=== PATIENT | female | born 2000 | race Caucasian/White ===

== ENCOUNTER 2024-12-28 00:02 | Emergency (ER) | payer BC, SELFPAY ==
--- OUTSIDE RECORDS SUMMARY | 2023-12-06 13:45 | XMS_ITS ---
Author Organization [facility] Address [address] [place] [address] Care Team Providers Care Estimator Lumber Name Role Phone Valerie Bhardwaj Primary Care Provider Unavailabl adele Lou Rao [facility] REASON FOR VISIT Minor Injuries Encounters Encounter Location Date Provider Diagnosis [address] [place] [address] 12/06/2023 Lou Hanna Plan Of Treatment No Information Progress Notes * JHONNYDANITAJordi LoomisCeciliaOB: 0 (24 yo F)Acc No.[id number]:12/06/2023 Patient: Vitor SEARS Provider: Arlin Hanna APRN :2000 A ge:23 Y S ex:Female Date:12/06/2023 External Visit ID:[id number] Address:[address] [place], [place] [address] [facility] Pcp:Valerie Bhardwaj Subjective: * Chief Complaints: * 1 . Minor Injuries. * Medical History: Objective: * Vitals: Assessment: Plan: * Treatment: * Billing Information: * Visit Code: * Procedure Codes: Care Plan Details* * Electronic signature of Viczayra Hanna APRN on 12/27/2024 at 11:22 PM CDT Sign off status: Pending * Provider: Arlin Hanna APRN Date: 12/06/2023 Generated for Beccai ng/Faxing/eTransmitting on: 0 12/27/2024 11:22 PM CDT
--- OUTSIDE RECORDS SUMMARY | 2024-11-01 07:15 | XMS_ITS ---
Author Organization [employer] [facility] [employer] Address [address] [place] [address] Care Team Providers Care Sew Out Operator Name Role Phone Javier Santoyo Primary Care Provider Ruddy Gallego Unavailable [phone] Valerie Bhardwaj Unavailable Unavailable Allergies Allergen (clinical drug ingredient) Drug/Non Drug Allergy documented on EMR Reaction Allergy Type Onset Date Status ketorolac Ketorolac Unknown Drug Allergy Active omeprazole Omeprazole vomiting Drug Allergy Activ e REASON FOR VISIT BH F/U Medications Medication SIG (Take, Route, Frequency, Duration) Notes Start Date End Date Status Prochlorperazine Maleate 10 MG 1 tablet as needed Orally Three times a day; Duration: 30 days Active CeleBREX 200 MG 1 capsule with food Orally Twice a day; Duration: 30 days Active Cymbalta 20 MG 1 capsule Orally Once a day Not-Taking SEROquel 25 MG 1 tablet at bedtime Orally Once a day; Duration: 30 days 03/16/2024 Not-Taking Hyoscyamine Sulfate 0.125 MG 3 tablets Orally twice a day; Duration: 30 days 08/16/2024 12/12/2024 Active Gabapentin 300 MG 1 capsule Orally three times a day; Duration: 30 days 03/16/2024 Active Vitamin D 25 MCG (1000 UT) 1 tablet Oral ly Once a day Not-Taking carBAMazepine 200 MG 1 tablet Orally Twice a day; Duration: 90 days 04/10/2024 Not-Taking Vitamin C 100 MG 1 tablet Orally Once a day Not-Taking Vitamin B12 100 MCG as directed Orally Not-Taking traZODone HCl 100 MG 1 tablet at bedtime as needed Orally Once a day; Duration: 30 days 03/30/2024 Active ALPRAZolam 0.5 MG 1 tablet Orally three times a day (tid) as needed (prn); Duration: 30 days As needed 08/18/2024 Active Caplyta 42 MG 1 capsule Orally Once a day; Duration: 30 days 03/16/2024 Active Sprintec 28 0.25-35 MG-MCG 1 tablet Oral ly Once a day; Duration: 28 days Active oxyBUTYnin Chloride ER 10 MG 1 tablet Orally Once a day; Duration: 90 days 08/09/2024 11/07/2024 Active Cranberry Active Multivitamin Active Zofran ODT 4 MG 1 tablet on the tongue and allow to dissolve Orally every 8 hours; Duration: 30 days As needed Active Social History Tobacco Use: Social History Observation Description Date Details (start date - stop date) Never Smoker NA - NA Tobacco Screen: Question Answer Notes Are you a: never smoker Alcohol Screening: Question Answer Notes Did you have a drink containing alcohol in the p ast year? No Points 0 Interpretation Negative Encounters Encounter Location Date Provider Diagnosis [facility] [address] [place] [address] 2024 Ruddy Gallego Plan Of Treatment Next Appt Details Provider Name:Ruddy Gallego, 01/02/2025 09:45:00 AM, [address] [place], [address], Progress Notes * CHALO KRUSE MDOB: [birth year] (24 yo F)Acc No.[id number]:11/01/2024 Behavioral Health Patient: CHALO SEARS Provider: GINA Beck :2000 A ge:24 Y S ex:Female Date:11/01/2024 Address:[address] [place] [address] [id number] Pcp:Javier Santoyo Subjective: * Chief Complaints: * 1 . BH F/U. * Medical History: L UPUS, IBS, ENDOMITRIOSIS, CHRONIC KIDNEY STONES, BIPOLAR 1, DEPRESSION WITH PSYCHOSIS, PTSD. * Surgical History: L APAROSCOPY , LITHOTRIPSY , MULTIPLE KIDNEY STENTS . * Hospitalization/Major Diagno stic Procedure: S EE ABOVE , tubular ovarian abscess and cyst . * Family History: F ather: alive, diagnosed with Diabetes. M other: alive, diagnosed with Lupus. 1 brother(s) . . * Social History: G eneral: T obacco Screen A re you a: n ever smoker Alcohol Screening D id you have a drink containing alcohol in the past year? N o P oints 0 I nterpretation N egative Transition of Care E R/UC/hospital since last office visit? N o Behaviors affecting health P oor/Risky Behaviors: D enies- Social/Support Concerns P atient: N o Ability to understand healthcare/treatment P atient: G ood Communication Barrier L anguage Barrier?: N o * Medications: T aking Cranberry , Taking Multivitamin , Taking Zofran ODT 4 MG Tablet Disintegrating 1 tablet on the tongue and allow to dissolve Orally every 8 hours As needed, Taking Sprintec 28 0.25-35 MG-MCG Tablet 1 tablet Orally Once a day , Taking oxyBUTYnin Chloride ER 10 MG Tablet Extended Release 24 Hour 1 tablet Orally Once a day , stop date 11/07/2024, Taking ALPRAZolam 0.5 MG Tablet 1 tablet Orally three times a day (tid) as needed (prn) As needed, Taking Caplyta 42 MG Capsule 1 capsule Orally Once a day , Taking traZODone HCl 100 MG Tablet 1 tablet at bedtime as needed Orally Once a day , Taking Gabapentin 300 MG Capsule 1 capsule Orally three times a day , Taking Hyoscyamine Sulfate 0.125 MG Tablet 3 tablets Orally twice a day , stop date 12/12/2024, Taking Prochlorperazine Maleate 10 MG Tablet 1 tablet as needed Orally Three times a day , Taking CeleBREX 200 MG Capsule 1 capsule with food Orally Twice a day , Not-Taking/PRN Vitamin C 100 MG Tablet Chewable 1 tablet Orally Once a day , Not-Taking/PRN Vitamin B12 100 MCG Tablet as directed Orally , Not-Taking/PRN Vitamin D 25 MCG (1000 UT) Tablet 1 tablet Orally Once a day , Not-Taking/PRN carBAMazepine 200 MG Tablet 1 tablet Orally Twice a day , Not-Taking/PRN Cymbalta 20 MG Capsule Delayed Release Particles 1 capsule Orally Once a day , Not-Taking/PRN SEROquel 25 MG Tablet 1 tablet at bedtime Orally Once a day * Allergies: O meprazole: vomiting, Ketorolac. Objective: * Vitals: Assessment: Plan: * Treatment: * Images: * Electronic signature of GINA Corbin on 12/28/2024 at 12:22 AM EDT Sign off status: Pending * Provider: GINA Beck Date: 11/01/2024 Generated for Sharonda riley/Verna/Debbie on: 12/28/2024 12:22 AM EDT
--- OUTSIDE RECORDS SUMMARY | 2024-11-06 07:15 | XMS_ITS ---
Author Organization [facility] es Address [address] [place] [address] Care Team Providers Care Trouble Clerk Name Role Phone Javier Santoyo Primary Care Provider Ruddy Gallego Unavailable [phone] Valerie Bhardwaj Unavailable Unavailable REASON FOR VISIT POST SURGERY RECHECK Encounters Encounter Location Date Provider Diagnosis [facility] [address] [place] [address] 11/06/2024 Javier Santoyo Plan Of Treatment Next Appt Details Provider Name:Ruddy Gallego, 01/02/2025 09:45:00 AM, [address] [place] [address], [address], Progress Notes * CHALO KRUSE MDOB: [birth year] (24 yo F)Acc No.[id number]:11/06/2024 Progress Notes Patient: Marco TIEN CHALO Chase Provider: Charly Santoyo :2000 A ge:24 Y S ex:Female Date:11/06/2024 Address:[facility] [id number] Subjective: * Chief Complaints: * 1 . POST SURGERY RECHECK. * Medical History: Objective: * Vitals: Assessment: Plan: * Treatment: * Images: * Electronic signature of Roddy Santoyo DO on 12/28/2024 at 12:22 AM EDT Sign off status: Pending * Provider: Charly Santoyo Date: 0 11/06/2024 Generated for Sharonda riley/Verna/Debbie on: 0 12/28/2024 12:22 AM EDT
[2024-12-28 00:13] VITALS: BP 107/44; PULSE 121; TEMP 36.4; O2SAT 98; BMI 40.4
[2024-12-28 00:20] VITALS: O2SAT 98
--- OUTSIDE RECORDS SUMMARY | 2024-12-28 00:23 | XMS_ITS | Clinical Summary ---
Author Organization [facility] Address [address] [place] [address] Phone Care Team Providers Care Social Work Professor Name Role Phone Valerie Bhardwaj MD Primary Care Provider [phone] Social History Tobacco Use Types Packs/Day Years Used Date Smoking Tobacco: Never Assessed Comments Unknown Sex and Gender Information Value Date Recorded Sex Assigned at Not on file Legal Sex Female 10:59 PM EST Gender Identity Not on file Sexual Orientation Not on file Plan of Treatment Not on file Medical Devices Implanted Type Area Staffing Executive Device Identifier Shelf Expiration Date Model / Serial / Lot Guidewire, Ultra Track, Hybrid, 0.035 In X 150cm Case [id number] Implanted:Qty: 2 on 05/06/2021 by Link Shell MD [employer] JOSE ALFREDO [employer] [id number] / / Description:Converted from [facility]. Please see archived information for full log information. Stent, Inlay Magee, 6fr X 24cm Case [id number] Implanted:Qty: 1 on 05/06/2021 by Link Shell MD Stent [employer] 11/10/2023 [id number] / / [id number] Description:Converted from [facility]. Please see archived information for full log information. Care Teams Social Work Professor Relationship Specialty Start Date End Date Valerie Bhardwaj MD [address] [place] [address] [address] [place] [address] PCP - General 04/21/21
--- OUTSIDE RECORDS SUMMARY | 2024-12-28 00:23 | XMS_ITS | Patient Health Record ---
Author Organization [facility] Address [address] [place] [address] Care Team Providers Care Atm Manager Name Role Phone Valerie Bhardwaj Primary Care Provider Unavailabl e Allergies Allergen (clinical drug ingredient) Drug/Non Drug Allergy documented on EMR Reaction Allergy Type Onset Date Status ketorolac Ketorolac vomit blood Drug Allergy Activ e omeprazole Omeprazole vomit blood Drug Allergy Act benita Reason For Referral No Information Medications Medication SIG (Take, Route, Frequency, Duration) Notes Start Date End Date Status Pepcid 20 MG 1 tablet Orally twic e a day Active oxyBUTYnin Chloride ER 10 MG 1 tablet Or ally Once a day Active Ondansetron 4 MG 1 tablet on the tongue and allow to dissolve Orally Every 8 hours As needed Active Norethindrone 0.35 MG 1 tablet Orally On ce a day Active Hyoscyamine Sulfate 0.125 MG 1 tablet as needed Orally every 4 hrs Active Cymbalta 20 MG 1 capsule Orally Onc e a day Active Cholecalciferol 25 MCG (1000 UT) 2 caps Orally Once a day Active CeleBREX 200 MG 1 capsule with food Orally twice a day Active Immunizations Vaccine Route Administration Date Status Comme nts [id number] Quad MDV (0.5mL Admin) 3 y/o & older Unknown 06/24/2020 Contraindications z2022 Fluzone Quad PFS (0.5m L Admin) 6 months & older Unknown 05/10/2022 Contraindications z2023 FluBLOK, 18 y/o & Olde r, Quad PDF (0.5mL Admin) Unknown 03/27/2023 Refused Social History Tobacco Use: Social History Observation Description Date Details (start date - stop date) Never Smoker NA - NA Tobacco Use Question Answer Notes Are you a Never smoker Problems Problem Type SNOMED Code ICD Code Onset Dates Problem Status W/U Status Risk Notes Problem Gastroesophageal reflux disease (964575963) GERD (gastroesophage al reflux disease) (K21.9) Active confirmed Problem Body mass index 40+ - morbidly obese (905689363) BMI 40.0-44.9, adult (Z68.41) Active confirmed Problem Elevated blood pressure reading without diagnosis of hypertension (197443087) Elevated blood pressure reading in office without diagnosis of hypertension (R03.0) Active confirmed Plan Of Treatment No Information Insurance Providers Payer Name Payer Address Payer Phone Subscriber Number Group Number Insured Name Patient Relationship to Insured Coverage Start Date Coverage End Date [facility] [address] [place] [address] [id number] Vitor Cabrera Self - patient is the insured Medical (General) History Medical History History ICD Code Lupus M32.9 IBS (irritable bowel syndrome) K58.9 Kidney stone N20.0 GERD (gastroesophageal reflux disease) K 21.9 Surgical History Surgery Date(Month/Year) ABD exploratory lap lithotripsy left kidney stent x2 tonsillectomy Hospitalization History Reason Date(Month/Year) kidney/lupus 04/2021
--- OUTSIDE RECORDS SUMMARY | 2024-12-28 00:23 | XMS_ITS | Clinical Summary ---
Author Organization [facility] Address [address] [facility] [place] [address] Care Team Providers Care Flour Blender Name Role Phone Javier Santoyo MD Primary Care Provider [phone] Allergies Active Allergy Reactions Criticality Noted Date Comments Bacitracin-Polymyxin B 08/09/2024 Other Reaction(s): Rash, Unknown Ketorolac GI bleeding 06/06/2021 Other Reaction(s): vomit blood, Vomiting Latex 08/04/2024 Other Reaction(s): Skin irritation Milk (Cow) GI intolerance 01/08/2021 Neomycin-Bacitracin Zn-Polymyx Rash Low 01/15/2021 Omeprazole Anaphylaxis,Shortnes s of breath,Unknown High 09/02/2020 Other Reaction(s): vomit blood, vomiting Other reaction(s): Difficulty Breathing Other GI intolerance 01/08/2021 Other Reaction(s): GI Upset Peanut (Diagnostic) GI intolerance 01/08/2021 Prunus 01/08/2021 Other Reaction(s): GI Upset Soybean Oil GI intolerance 01/08/2021 Medications hyoscyamine (Anaspaz,Levsin) 0.125 MG tablet TAKE 1 TABLET BY MOUTH 5 TIMES A DAY NEEDED Active Jencycla 0.35 MG tablet Take 1 tablet by mouth Daily Active ondansetron ODT (Zofran-ODT) 4 MG disintegrating tablet DISSOLVE 1 TABLET IN MOUTH 3 TIMES A DAY NEEDED FOR 5 DAYS Active oxybutynin XL (Ditropan-XL) 10 MG 24 hr tablet Take 10 mg by mouth Daily Active traZODone (Desyrel) 100 MG tablet 1 (one) time each day at the same time 4 Active CeleBREX 200 MG capsule every 12 (twelve) hours Active gabapentin (Neurontin) 300 MG capsule Take 300 mg by mouth in the morning and 300 mg in the evening and 300 mg before bedtime. 5 Active famotidine (Pepcid) 20 MG tablet every 12 (twelve) hours Active HYDROcodone-acetam inophen (Rentz) 5-325 MG tablet Take 1 tablet by mouth every 6 (six) hours if needed 5 Active prochlorperazine (Compazine) 10 MG tablet every 8 (eight) hours Active Caplyta 42 MG capsule 1 capsule 1 (one) time each day at the same time 4 Active ALPRAZolam (Xanax) 0.5 MG tablet 1 tablet Orally three times a day (tid) as needed (prn) for 30 days As needed 5 Active dicyclomine (Bentyl) 20 MG tablet TAKE 1 TABLET BY MOUTH 3 TIMES A DAY NEEDED FOR ABDOMINAL PAIN 5 Active Multiple Vitamin (multivitamin) tablet Take 1 tablet by mouth Daily Active acetaminophen (Tylenol) 500 MG tablet Take 1,000 mg by mouth if needed for mild pain Active norethindrone-ethi nyl estradiol (Loestrin Fe 07/10) 1-20 MG-MCG tabletIndications: Pelvic pain in female,Irregular menses,Dysmenorrhe a Take 1 tablet by mouth Daily 90 tablet 3 5 08/22/19 26 Active Active Problems Problem Noted Date Diagnosed Date Lower abdominal pain 08/09/2024 Chronic abdominal pain 08/09/2024 Encounters Date Type Department Care Team Description 11/22/2024 Telephone [facility] [address] [place] [address] Meredith Corona LPN 10/30/2024 Travel 10/17/2024 Travel from Last 3 Months Family History Medical History Relation Name Comments Asthma Brother Robin Cancer Father Jeff Diabetes Father Jeff Relation Name Status Comments Brother Robin Alive Father Jeff Alive Mother Alive Social History Tobacco Use Types Packs/Day Years Used Date Smoking Tobacco: Never Smokeless Tobacco: Never Tobacco Cessation:Counseling Given: Not Answered Alcohol Use Standard Drinks/Week Comments Not Currently 0 (1 standard drink = 0.6 oz pur e alcohol) Comments No Sex and Gender Information Value Date Recorded Sex Assigned at Not on file Legal Sex Female 9:45 PM EDT Gender Identity Not on file Sexual Orientation Not on file Last Filed Vital Signs Vital Sign Reading Time Taken Comments Blood Pressure 112/82 08/21/2024 11:29 AM EST Pulse 68 08/04/2024 5:29 PM EST Temperature 36.7 C (98 F) 08/04/2024 5:29 PM EST Respiratory Rate - - Oxygen Saturation 98% 08/04/2024 5:29 PM EST Inhaled Oxygen Concentration - - Weight 128 kg (283 lb) 09/12/2024 1:53 PM EDT Height 167.6 cm (5' 6 ) 09/12/2024 1:53 PM EDT Body Mass Index 45.68 09/12/2024 1:53 PM EDT Plan of Treatment Health Maintenance Due Date Last Done Comments Influenza Vaccine (#1) 2025 Procedures Procedure Name Priority Date/Time Associated Diagnosis Comments CT ABDOMEN PELVIS W IV CONTRAST Routine 10/25/2024 4:40 PM EDT Lower abdominal pain Chronic abdominal pain Localized enlarged lymph nodes from Last 3 Months Results * CT abdomen pelvis w IV contrast (10/25/2024 4:40 PM EDT) Anatomical Region Laterality Modality Body, Pelvis, Abdomen Computed T omography 10/25/2024 4:40 PM EDT Impressions 10/25/2024 4:45 PM EDT No acute process. Bilateral nephrolithiasis. Prominent mesenteric lymph nodes similar to the prior study. Finding is nonspecific. Attention on follow-up is suggested. Impression dictated by: Dejuan Wiley Jr., D.O. 10/25/2024 4:42 PM Dictation Location: [address] [place] [address] Transcribed By: PWS 10/25/24 1642 Dictated By: Dejuan Wiley Jr, DO 10/25/24 1640 Signed By: <Electronically signed by Dejuan Wiley Jr, DO in OV> 10/25/24 1642 Narrative 10/25/2024 4:45 PM EDT [facility] [id number] Scan Report Signed Patient: Vitor Goode MR#: [id number] : 2000 Acct:[id number] Age/Sex: 24 / F ADM Date: 10/25/24 Loc: CT Room: Type: [facility] CLI Attending Dr: Radu Loomis MD Copies to: Radu Loomis MD Ordering Provider: Radu Loomis MD Date of Service: 10/25/24 CT/CT abdomen pelvis w con: Abdominal pain, Enlarged lymph nodes CT ABDOMEN AND PELVIS WITH INTRAVENOUS CONTRAST: CLINICAL HISTORY: Lower abdominal/pelvic pain for 5 years. COMPARISON: CT abdomen and pelvis 06/26/2024 TECHNIQUE: Spiral images were obtained through the abdomen and pelvis following the administration of intravenous contrast. This CT exam was performed using one or more following dose reduction techniques: Automated exposure control, adjustment of the mA and/or kV according to patient size, or use of iterative reconstruction technique. FINDINGS: Lung Bases: [No acute findings.] Organs:Gallbladder is contracted. Liver portal vein spleen pancreas and adrenal glands all appear unremarkable. Cyst left kidney. Bilateral nephrolithiasis largest stone measuring 5 mm involving the right kidney. Aorta appears normal in caliber.[ GI: Stomach is grossly unremarkable. Small bowel appears nondilated. Appendix is normal. Acute colonic abnormality.[ Pelvis:[Urinary bladder is grossly unremarkable. Uterus is grossly unremarkable. No adnexal mass.] Peritoneum/Retroperitoneum:No free air or free fluid or lymphadenopathy. Prominent mesenteric lymph nodes.[ Abd wall/Bones:Abdominal wall demonstrate no acute findings. Osseous structures demonstrate mild degenerative change.[ CT/CT abdomen pelvis w con Procedure Note Dejuan Wiley Jr., DO - 10/25/2024 [facility] Main [place] [address] [place] [address] CT Scan Report Signed Patient: Vitor Goode MMR#: [id number] : 2000Acct:[id number] Age/Sex: 24 / FADM Date: 10/25/24 Loc: CT Room:Type: [facility] CLI Attending Dr: Radu Loomis MD Copies to: Radu Loomis MD Ordering Provider: Radu Loomis MD Date of Service: 10/25/24 CT/CT abdomen pelvis w con: Abdominal pain,Enlarged lymph nodes CT ABDOMEN AND PELVIS WITH INTRAVENOUS CONTRAST: CLINICAL HISTORY: Lower abdominal/pelvic pain for 5 years. COMPARISON: CT abdomen and pelvis 06/26/2024 TECHNIQUE: Spiral images were obtained through the abdomen and pelvisfollowing the administration of intravenous contrast. This CT exam was performed using one or morefollowing dose reduction techniques: Automated exposure control, adjustment of the mA and/or kVaccording to patient size, or use of iterative reconstruction technique. FINDINGS: Lung Bases: [No acute findings.] Organs:Gallbladder is contracted. Liver portal vein spleen pancreas andadrenal glands all appear unremarkable. Cyst left kidney. Bilateral nephrolithiasis largest stonemeasuring 5 mm involving the right kidney. Aorta appears normal in caliber.[ GI: Stomach is grossly unremarkable. Small bowel appears nondilated.Appendix is normal. Acute colonic abnormality.[ Pelvis:[Urinary bladder is grossly unremarkable. Uterus is grosslyunremarkable. No adnexal mass.] Peritoneum/Retroperitoneum:No free air or free fluid or lymphadenopathy.Prominent mesenteric lymph nodes.[ Abd wall/Bones:Abdominal wall demonstrate no acute findings. Osseousstructures demonstrate mild degenerative change.[ CT/CT abdomen pelvis w con IMPRESSION: No acute process. Bilateral nephrolithiasis. Prominent mesenteric lymph nodes similar to the prior study. Finding isnonspecific. Attention on follow-up is suggested. Impression dictated by: Dejuan Wiley Jr., D.O. 10/25/2024 4:42 PM Dictation Location: [place] [address] Transcribed By: [facility] 10/25/24 1642 Dictated By: Dejuan Wiley Jr, DO 10/25/24 1640 Signed By: <Electronically signed by Dejuan Wiley Jr, DO inOV> 10/25/24 1642 Radu Oliveros MD IMG CT PROCEDURES Final Resu lt from Last 3 Months Insurance BCBS Care Teams Flour Blender Relationship Specialty Start Date End Date Javier Santoyo MD [facility] [place] [address] PCP - General Family Medicine 08/09/24
--- OUTSIDE RECORDS SUMMARY | 2024-12-28 00:23 | XMS_ITS | Clinical Summary ---
Author Organization [facility] Address [address] [place] [address] Care Team Providers Care Gum Rolling Machine Operator Name Role Phone Valerie Bhardwaj MD Primary Care Provider [phone] Allergies Active Allergy Reactions Criticality Noted Date Comments Apricot GI Upset 01/08/2021 Beef Containing Products GI Upset 01/08/2021 Ketorolac Vomiting 06/06/2021 Milk GI Upset 01/08/2021 Qturjlxn-Oziawuqzca-P olymyxin Rash 01/15/2021 Omeprazole Anaphylaxis,Shortnes s of Breath High 09/02/2020 Other reaction(s): Difficulty Breathing Peanut GI Upset 01/08/2021 Pork Derived (Porcine) GI Upset 01/08/2021 Soy Protein GI Upset 01/08/2021 Mcintosh GI Upset 01/08/2021 Medications Norethindrone, Contraceptive, 0.35 mg tablet Norethindrone (Contraceptive) Active 0.35 MG PO Daily October 24, 2020 12:02pm 10/25/19 21 Active iv contrast (will be provided with radiology test) CT ABD/PEL -Inject, intravenously, once for 1 dose.No IV access, insert saline lock prior to the beginning of sedation, infusion, injection of imaging exam. Discontinue saline lock post exam. If Pt. has a central line or IVAD, may access for administration according to line specific nursing protocol. Once exam is complete flush line and de-access according to line specific nursing protocol in the CT contrast administration guidelines link. 1 Each 01/16/20 21 Active tamsulosin (FLOMAX) 0.4 mgIndications:K idney stones,Abdomina l pain, unspecified abdominal location,Left ureteral stone,Hydroneph rosis with urinary obstruction due to ureteral calculus,Microh ematuria Take 1 capsule by mouth once daily. Take one cap. daily 30 capsule 02/11/20 Active prochlorperazin e (COMPAZINE) 5 mg tablet Take 10 mg by mouth every 8 hours as needed. Active ondansetron (ZOFRAN) 4 mg tablet Take by mouth every 8 hours as needed for nausea/vomiting. Active oxyCODONE-aceta minophen (PERCOCET) 5-325 mg tablet Take by mouth every 8 hours as needed for pain. Active DULoxetine (CYMBALTA) 30 mg capsule Take 30 mg by mouth twice daily. Active melatonin 10 mg tab Take by mouth. Activ e famotidine (PEPCID) 40 mg tablet Take 40 mg by mouth once daily. Active Hyoscyamine Sulfate 0.125 mg-0.25 mg (0.375 mg) TbMP Take by mouth. Active ergocalciferol 50,000 unit capsule (VITAMIN D2, DRISDOL) Take 1 capsule by mouth one time a week. 12 capsule 06/11/20 Active Active Problems Problem Noted Date Diagnosed Date Kidney stones 02/10/2021 Abdominal pain 02/10/2021 Left ureteral stone 02/10/2021 Hydronephrosis with urinary obstruction due to ureteral calculus 02/10/2021 Microhematuria 02/10/2021 Family History Medical History Relation Comments Blood Clots Father Diabetes Father Kidney stones Father Lymphoma Father Fibromyalgia Mother Systemic Lupus Erythematosus Mother endometriosis Mother Colon Cancer Paternal Uncle Crohn's Disease Paternal Uncle Kidney stones Paternal Uncle Relation Status Comments Father Mother Paternal Uncle Other Social History Tobacco Use Types Packs/Day Years Used Date Smoking Tobacco: Never Smokeless Tobacco: Never Tobacco Cessation:Counseling Given: Yes Alcohol Use Standard Drinks/Week Comments Never 0 (1 standard drink = 0.6 oz pur e alcohol) Area Deprivation Index Answer Date Fox rded National Score (1-100), lower number is lower ri sk 51 07/07/2022 State Score (1-10), lower number is lower risk N ot on file 07/07/2022 Data from: https://www.neighborhoodatlas.medicine.[facility].edu/. Last address used for calculation [address] [facility] 07/07/2022 Comments Unknown Sex and Gender Information Value Date Recorded Sex Assigned at Not on file Legal Sex Female 3:46 PM EDT Gender Identity Not on file Sexual Orientation Not on file Last Filed Vital Signs Vital Sign Reading Time Taken Comments Blood Pressure 106/70 06/06/2021 4:34 PM EST Pulse 95 06/06/2021 4:34 PM EST Temperature 36.5 C (97.7 F) 06/06/2021 4:34 PM EST Respiratory Rate 16 06/06/2021 4:34 PM EST Oxygen Saturation 99% 06/06/2021 4:34 PM EST Inhaled Oxygen Concentration - - Weight 93.4 kg (206 lb) 06/06/2021 4:34 PM EST Height 167.6 cm (5' 6 ) 06/06/2021 4:34 PM EST Body Mass Index 33.25 06/06/2021 4:34 PM EST Plan of Treatment Health Maintenance Due Date Last Done Comments DTaP,Tdap,Td Vaccine (6 - Tdap) 2011 02/12/2005, 06/09/2001, 2000, Additional history exists Peds To Adult Transition Ini tial Discussion 2012 Peds To Adult Transition [place] ual Assessment 2014 HPV Vaccine (1 - 3-dose series) 2015 Anxiety Screening 2018 Depression Screening 2018 HIV Screening 2018 Hepatitis C Screening 2018 Cervical Cancer Screening 2021 Covid-19 Vaccine (3 - 2023-2 5 season) 2024 12/14/2020, 11/23/2020 Influenza Vaccine (#1) 2025 Hepatitis B Vaccine Completed 2000, 2000, 2000 Insurance BLUE CARD PPO [employer] Care Teams Gum Rolling Machine Operator Relationship Specialty Start Date End Date Valerie Bhardwaj MD [address] [place] [address] PCP - General Family Medicine 02/10/21
--- OUTSIDE RECORDS SUMMARY | 2024-12-28 00:23 | XMS_ITS | Encounter Summary ---
Author Organization [facility] Address [address] [place] [id number] Care Team Providers Care Dishcloth Folder Name Role Phone Valerie Bhardwaj MD Primary Care Provider [phone] Source Comments In the event this information is protected by the Federal Confidentiality of Alcohol and Drug AbusePatient Records regulations: The Federal rules restrict any use of the information to criminally investigate or prosecute any alcohol or drug abuse patient.[facility] Encounter Details Date Type Department Care Team (Late st Contact Info) Description 03/04/2021 Get Medical Advice Urology [address] [place] [address] Joel Cruz MD [address] [place], [place] [id number] RE: Medication Question (Not Renewal) Social History Tobacco Use Types Packs/Day Years Used Date Smoking Tobacco: Never Smokeless Tobacco: Never Area Deprivation Index Answer Date Fox rded National Score (1-100), lower number is lower ri sk Not on file 01/15/2021 State Score (1-10), lower number is lower risk N ot on file 01/15/2021 Data from: https://www.neighborhoodatlas.medicine.[facility].edu/. Last address used for calculation Not on file 01/15/2021 Comments Unknown Sex and Gender Information Value Date Recorded Sex Assigned at Not on file Legal Sex Female 3:46 PM EDT Gender Identity Not on file Sexual Orientation Not on file COVID-19 Exposure Response Date Recorded In the last month, have you been in contact with someone who was confirmed or suspected to have Coronavirus / COVID-19? No / Unsure 02/10/2021 2:42 PM EDT documented as of this encounter Plan of Treatment Not on file documented as of this encounter Visit Diagnoses Not on filedocumented in this encounter Care Teams Dishcloth Folder Relationship Specialty Start Date End Date Valerie Bhardwaj MD [address] [place] [id number] PCP - General Family Medicine 02/10/21 documented as of this encounter
--- OUTSIDE RECORDS SUMMARY | 2024-12-28 00:23 | XMS_ITS | Encounter Summary ---
Author Organization [facility] Address [facility] [place] [address] Care Team Providers Care Rolling Mill Plugger Name Role Phone Valerie Bhardwaj MD Primary Care Provider [phone] Source Comments In the event this information is protected by the Federal Confidentiality of Alcohol and Drug AbusePatient Records regulations: The Federal rules restrict any use of the information to criminally investigate or prosecute any alcohol or drug abuse patient.[facility] Encounter Details Date Type Department Care Team (Late st Contact Info) Description 09/18/2021 Patient Msjane [facility] & [address] [place] [id number] Provider, [facility] RESCHEDULED APPOINTMENT Social History Tobacco Use Types Packs/Day Years Used Date Smoking Tobacco: Never Smokeless Tobacco: Never Alcohol Use Standard Drinks/Week Comments Never 0 (1 standard drink = 0.6 oz pur e alcohol) Area Deprivation Index Answer Date Fox rded National Score (1-100), lower number is lower ri sk Not on file 01/15/2021 State Score (1-10), lower number is lower risk N ot on file 01/15/2021 Data from: https://www.neighborhoodatlas.medicine.[facility].edu/. Last address used for calculation Not on file 01/15/2021 Comments Unknown Sex and Gender Information Value Date Recorded Sex Assigned at Not on file Legal Sex Female 3:46 PM EDT Gender Identity Not on file Sexual Orientation Not on file documented as of this encounter Plan of Treatment Not on file documented as of this encounter Visit Diagnoses Not on filedocumented in this encounter Care Teams Rolling Mill Plugger Relationship Specialty Start Date End Date Valerie Bhardwaj MD [address] [place] [address] PCP - General Family Medicine 02/10/21 documented as of this encounter
--- NOTE | 2024-12-28 00:56 | ED.ABDPAIN1 ---
HPI - Abdominal Pain General Chief Complaint: Abdominal Pain Stated Complaint: ABDOMINAL PAIN Time Seen by Provider: 12/28/24 00:53 Source: patient Mode of arrival: walk-in Limitations: no limitations History of Present Illness HPI narrative: seen at [facility] a couple of days ago and diagnosed with left renal colic. Continued pain ever since but has increased tonight. No fever. Does have hematuria Related Data Home Medications ?Medication ?Instructions ?Recorded ?Confirmed alprazolam 0.5 mg tablet mg 12/28/24 cephalexin 500 mg capsule mg 12/28/24 hydrocodone 5 mg-acetaminophen 325 tab 12/28/24 mg tablet hyoscyamine sulfate 0.125 mg tablet mg 12/28/24 lumateperone 42 mg capsule mg PO 12/28/24 (Caplyta) norgestimate 0.25 mg-ethinyl tab 12/28/24 estradiol 0.035 mg tablet ondansetron 4 mg disintegrating mg 12/28/24 tablet ondansetron HCl 4 mg tablet mg 12/28/24 oxybutynin chloride 10 mg mg PO 12/28/24 tablet,extended release 24 hr prochlorperazine maleate 10 mg mg 12/28/24 tablet sulfamethoxazole 800 tab 12/28/24 mg-trimethoprim 160 mg tablet Allergies Allergy/AdvReac Type Severity Reaction Status Date / Time ketorolac (From Toradol) Allergy Intermediate Vomiting Verified 12/28/24 00:18 omeprazole AdvReac Intermediate Abdominal Verified 12/28/24 00:18 Pain Review of Systems ROS Status of ROS 10 or more systems reviewed and unremarkable except as noted in history and below Exam Constitutional Vital Signs, click to edit/add: Last Vital Signs Temp 97.6 F 12/28/24 00:13 Pulse 121 H 12/28/24 00:13 Resp 20 12/28/24 00:13 BP 107/44 L 12/28/24 00:13 Pulse Ox 98 12/28/24 00:20 O2 Del Method Room Air 12/28/24 00:20 Common normals: no apparent distress, oriented x3, alert and well nourished [facility] Common normals: normocephalic and head/scalp atraumatic Eye Common normals: EOMs intact bilaterally and conjunctivae normal Respiratory Common normals: normal respiratory effort, no retractions, no use of accessory muscles and clear to auscultation bilaterally Cardio Rate: tachycardic GI Other: LLQ and left CVA pain Neuro Common normals: oriented x3, CN's II-XII intact bilaterally, moves all extremities and no focal motor deficits Psych Appearance: grossly normal Course Vital Signs Vital signs: Vital Signs Temperature 97.6 F 12/28/24 00:13 Pulse Rate 121 H 12/28/24 00:13 Respiratory Rate 20 12/28/24 00:13 Blood Pressure 107/44 L 12/28/24 00:13 Pulse Oximetry 98 12/28/24 00:13 Oxygen Delivery Method Room Air 12/28/24 00:13 Temperature 97.6 F 12/28/24 00:13 Pulse Rate 121 H 12/28/24 00:13 Respiratory Rate 20 12/28/24 00:13 Blood Pressure 107/44 L 12/28/24 00:13 Pulse Oximetry 98 12/28/24 00:20 Oxygen Delivery Method Room Air 12/28/24 00:20 MDM - Abdominal Pain MDM Narrative Medical decision making narrative: patient presents with left renal colic. Seen At [facility] [address] reviewed and demonstrated 4mm stone at UVJ. Patient medicated in the department and is feeling better. Still has Antoine at home. Labs with microscopic hematuria and normal WBC. Patient hydrated with 1L NS and discharged home Lab Data Labs: Lab Results 12/28/24 12/28/24 12/28/24 Range/Units 00:45 00:55 01:52 WBC 9.8 (4.0-11.0) 10^3/uL RBC 4.93 (4.20-5.40) 10^6/uL Hgb 14.7 (12.0-16.0) g/dL Hct 43.1 (36.0-48.0) % MCV 87.4 (81.0-99.0) fL MCH 29.8 (26.7-34.0) pg MCHC 34.1 (29.9-35.2) g/dL RDW 12.5 (11.0-15.0) % Plt Count 347 (150-450) 10^3/uL MPV 9.7 (9.5-13.5) fL Neut % (Auto) 62.9 (43.0-75.0) % Lymph % (Auto) 28.7 (20.5-60.0) % Falls % (Auto) 5.4 (1.7-12.0) % Eos % (Auto) 2.5 (0.9-7.0) % Baso % (Auto) 0.3 (0.2-2.0) % Neut # (Auto) 6.2 (1.4-6.5) 10^3/uL Lymph # (Auto) 2.8 (1.2-3.8) 10^3/uL Falls # (Auto) 0.5 (0.3-0.8) 10^3/uL Eos # (Auto) 0.2 (0.0-0.7) 10^3/uL Baso # (Auto) 0.0 (0.0-0.1) 10^3/uL Abs Immat Gran (auto) 0.02 (0.00-0.03) 10^3/uL Imm/Tot Granulo (auto) 0.2 (0.0-0.5) % Sodium 139 (136-145) mmol/L Potassium 3.6 (3.5-5.1) mmol/L Chloride 102 (98-107) mmol/L Carbon Dioxide 25.3 (21.0-32.0) mmol/L Anion Gap 15.3 BUN 12.0 (7.0-18.0) mg/dL Creatinine 0.76 (0.55-1.02) mg/dL Est GFR ( Amer) >60 (>=60 mL/min/1.73m^2) Est GFR (Non-Af Amer) >60 (>=60 mL/min/1.73m^2) BUN/Creatinine Ratio 15.8 Glucose 91 (74-106) mg/dL Lactate 0.7 (0.4-2.0) mmol/L Calcium 9.4 (8.5-10.1) mg/dL Urine Color Lt. yellow (YELLOW) Urine Clarity Clear (CLEAR) Urine pH 6.0 (5.0-9.0) Ur Specific [place] <=1.005 A (1.005-1.025) Urine Protein Negative (NEG/TRACE) mg/dL Urine Glucose (UA) Negative (NEGATIVE) mg/dL Urine Ketones Negative (NEGATIVE) mg/dL Urine Occult Blood Moderate A (NEGATIVE) Urine Nitrite Negative (NEGATIVE) Urine Bilirubin Negative (NEGATIVE) Urine Urobilinogen 0.2 (0.2-1.0) EU/dL Ur Leukocyte Esterase Trace A (NEGATIVE) Urine RBC 0-2 (0-2) #/HPF Urine WBC 0-2 A (NONE SEEN) #/HPF Ur Squamous Epith Cells Rare (NONE/RARE) #/LPF Urine Crystals None seen (None Seen) #/HPF Urine Bacteria None seen (NONE SEEN) #/HPF Urine Casts None seen (NONE SEEN) #/LPF Urine Mucus None seen (NONE SEEN) Ur Culture Indicated? No Discharge Plan Discharge Chief Complaint: Abdominal Pain Clinical Impression: Calculus of kidney Patient Disposition: Home, Self-Care Prescriptions / Home Meds: No Action norgestimate-ethinyl estradiol 0.25-0.035 mg tablet oxybutynin chloride 10 mg tablet extended release 24hr PO hydrocodone-acetaminophen 5-325 mg tablet ondansetron HCl 4 mg tablet prochlorperazine maleate 10 mg tablet sulfamethoxazole-trimethoprim 800-160 mg tablet alprazolam 0.5 mg tablet cephalexin 500 mg capsule hyoscyamine sulfate 0.125 mg tablet ondansetron 4 mg tablet,disintegrating Caplyta 42 mg capsule PO Print Language: German Instructions: Kidney Stones (ED) Referrals: Javier Santoyo DO [Primary Care Provider] - 1 week
[2024-12-28 01:21] LABS: Hematocrit 43.1 % (36.0-48.0); Hemoglobin 14.7 g/dL (12.0-16.0); Immature Granulocytes Abs Auto 0.02 10^3/uL (0.00-0.03); Immature Granulocytes Pct Auto 0.2 % (0.0-0.5); Lymphocytes Absolute Auto 2.8 10^3/uL (1.2-3.8); Mean Corpuscular HGB Conc 34.1 g/dL (29.9-35.2); Mean Corpuscular Hemoglobin 29.8 pg (26.7-34.0); Mean Corpuscular Volume 87.4 fL (81.0-99.0); Platelet Count 347 10^3/uL (150-450); Red Blood Count 4.93 10^6/uL (4.20-5.40); White Blood Count 9.8 10^3/uL (4.0-11.0)
[2024-12-28 01:23] LABS: Glucose Urine UA NEGATIVE (NEGATIVE)
[2024-12-28] MEDS: FENTANYL CITRATE/PF 100 MCG/2 ML VIAL IV (01:24)
[2024-12-28] MEDS: 0.9 % SODIUM CHLORIDE 1,000 ML 999 ML IV (01:24)
[2024-12-28] MEDS: METOCLOPRAMIDE HCL 10 MG/2 ML VIAL IVP (01:24)
[2024-12-28] MEDS: ORPHENADRINE 60 MG/2 ML VIAL IV (01:24)
[2024-12-28 01:35] LABS: Cast Seen? NONE SEEN #/LPF (NONE SEEN); Crystals Seen? None Seen #/HPF (None Seen); Urine Culture Indicated NO
[2024-12-28 01:36] LABS: Anion Gap 15.3; Blood Urea Nitrogen 12.0 mg/dL (7.0-18.0); Calcium 9.4 mg/dL (8.5-10.1); Carbon Dioxide 25.3 mmol/L (21.0-32.0); Chloride 102 mmol/L (98-107); Estimated GFR (African America >60 (>=60 mL/min/1.73m^2); Estimated GFR (Non-African Ame >60 (>=60 mL/min/1.73m^2); Glucose 91 mg/dL (74-106); Potassium 3.6 mmol/L (3.5-5.1); Sodium 139 mmol/L (136-145)
[2024-12-28 02:21] LABS: Lactate/Lactic Acid 0.7 mmol/L (0.4-2.0)
[2024-12-28 03:08] VITALS: BP 130/75
[2024-12-28] MEDS: DIPHENHYDRAMINE HCL 50 MG/ML VIAL IVP (03:35)
[2024-12-28] MEDS: HYDROMORPHONE HCL 1 MG/ML CARTRIDGE IV (03:35)
--- NOTE | 2024-12-28 08:54 | ED_ITS ---
HPI HPI - General Adult General Chief complaint: Abdominal Pain Stated complaint: ABDOMINAL PAIN Time Seen by Provider: 12/28/24 00:53 Source: patient Mode of arrival: walk-in Limitations: no limitations History of Present Illness HPI narrative: 24-year-old female presents to the emergency department and was initially seen by Dr. Portillo and signed out to me after discussing the case with him thoroughly. Please see his full history and physical exam. Related Data Home Medications ?Medication ?Instructions ?Recorded ?Confirmed alprazolam 0.5 mg tablet mg 12/28/24 cephalexin 500 mg capsule mg 12/28/24 hydrocodone 5 mg-acetaminophen 325 tab 12/28/24 mg tablet hyoscyamine sulfate 0.125 mg tablet mg 12/28/24 lumateperone 42 mg capsule mg PO 12/28/24 (Caplyta) norgestimate 0.25 mg-ethinyl tab 12/28/24 estradiol 0.035 mg tablet ondansetron 4 mg disintegrating mg 12/28/24 tablet ondansetron HCl 4 mg tablet mg 12/28/24 oxybutynin chloride 10 mg mg PO 12/28/24 tablet,extended release 24 hr prochlorperazine maleate 10 mg mg 12/28/24 tablet sulfamethoxazole 800 tab 12/28/24 mg-trimethoprim 160 mg tablet Previous Rx's ?Medication ?Instructions ?Recorded cephalexin 500 mg capsule 500 mg PO TID 7 days #21 cap s 12/28/24 hydrocodone 5 mg-acetaminophen 325 1 tab PO Q6H PRN pa in 5 days #20 12/28/24 mg tablet tabs ondansetron 4 mg disintegrating 4 mg PO Q6H PRN nausea and 12/28/24 tablet vomiting #20 tabs tamsulosin 0.4 mg capsule (Flomax) 0.4 mg PO DAILY #7 caps 12/28/24 Allergies Allergy/AdvReac Type Severity Reaction Status Date / Time ketorolac (From Toradol) Allergy Intermediate Vomiting Verified 12/28/24 00:18 omeprazole AdvReac Intermediate Abdominal Verified 12/28/24 00:18 Pain Opioid HPI Opioid Management Most Recent Opioid Data: Last Pain Scale 3 Today, 08:45 Last ED Pain Assessment Today, 08:45 Exam Constitutional Vital Signs, click to edit/add: Last Vital Signs Temp 97.6 F 12/28/24 00:13 Pulse 89 12/28/24 08:55 Resp 18 12/28/24 08:55 BP 125/81 12/28/24 08:55 Pulse Ox 99 12/28/24 08:55 O2 Del Method Room Air 12/28/24 00:20 Course Vital Signs Vital signs: Vital Signs Temperature 97.6 F 12/28/24 00:13 Pulse Rate 121 H 12/28/24 00:13 Respiratory Rate 20 12/28/24 00:13 Blood Pressure 107/44 L 12/28/24 00:13 Pulse Oximetry 98 12/28/24 00:13 Oxygen Delivery Method Room Air 12/28/24 00:13 Temperature 97.6 F 12/28/24 00:13 Pulse Rate 89 12/28/24 08:55 Respiratory Rate 18 12/28/24 08:55 Blood Pressure 125/81 12/28/24 08:55 Pulse Oximetry 99 12/28/24 08:55 Oxygen Delivery Method Room Air 12/28/24 00:20 Medical Decision Making MDM Narrative Medical decision making narrative: CT scan shows 2 stones, there is a 4 mm stone in the lower left ureter and a 6.8 x 3.3 mm stone at the left UV junction. She is feeling improved now and will be discharged home on Luna, Flomax, Zofran, and Keflex. Treatment diagnosis and follow-up were discussed with the patient and her mother. Differential Diagnosis Differential Diagnosis: Kidney stone, pyelonephritis, UTI Lab Data Lab results reviewed: Yes I reviewed the patient's lab results Labs: Lab Results 12/28/24 12/28/24 12/28/24 Range/Units 00:45 00:55 01:52 WBC 9.8 (4.0-11.0) 10^3/uL RBC 4.93 (4.20-5.40) 10^6/uL Hgb 14.7 (12.0-16.0) g/dL Hct 43.1 (36.0-48.0) % MCV 87.4 (81.0-99.0) fL MCH 29.8 (26.7-34.0) pg MCHC 34.1 (29.9-35.2) g/dL RDW 12.5 (11.0-15.0) % Plt Count 347 (150-450) 10^3/uL MPV 9.7 (9.5-13.5) fL Neut % (Auto) 62.9 (43.0-75.0) % Lymph % (Auto) 28.7 (20.5-60.0) % [place] % (Auto) 5.4 (1.7-12.0) % Eos % (Auto) 2.5 (0.9-7.0) % Baso % (Auto) 0.3 (0.2-2.0) % Neut # (Auto) 6.2 (1.4-6.5) 10^3/uL Lymph # (Auto) 2.8 (1.2-3.8) 10^3/uL [place] # (Auto) 0.5 (0.3-0.8) 10^3/uL Eos # (Auto) 0.2 (0.0-0.7) 10^3/uL Baso # (Auto) 0.0 (0.0-0.1) 10^3/uL Abs Immat Gran (auto) 0.02 (0.00-0.03) 10^3/uL Imm/Tot Granulo (auto) 0.2 (0.0-0.5) % Sodium 139 (136-145) mmol/L Potassium 3.6 (3.5-5.1) mmol/L Chloride 102 (98-107) mmol/L Carbon Dioxide 25.3 (21.0-32.0) mmol/L Anion Gap 15.3 BUN 12.0 (7.0-18.0) mg/dL Creatinine 0.76 (0.55-1.02) mg/dL Est GFR ( Amer) >60 (>=60 mL/min/1.73m^2) Est GFR (Non-Af Amer) >60 (>=60 mL/min/1.73m^2) BUN/Creatinine Ratio 15.8 Glucose 91 (74-106) mg/dL Lactate 0.7 (0.4-2.0) mmol/L Calcium 9.4 (8.5-10.1) mg/dL Urine Color Lt. yellow (YELLOW) Urine Clarity Clear (CLEAR) Urine pH 6.0 (5.0-9.0) Ur Specific [place] <=1.005 A (1.005-1.025) Urine Protein Negative (NEG/TRACE) mg/dL Urine Glucose (UA) Negative (NEGATIVE) mg/dL Urine Ketones Negative (NEGATIVE) mg/dL Urine Occult Blood Moderate A (NEGATIVE) Urine Nitrite Negative (NEGATIVE) Urine Bilirubin Negative (NEGATIVE) Urine Urobilinogen 0.2 (0.2-1.0) EU/dL Ur Leukocyte Esterase Trace A (NEGATIVE) Urine RBC 0-2 (0-2) #/HPF Urine WBC 0-2 A (NONE SEEN) #/HPF Ur Squamous Epith Cells Rare (NONE/RARE) #/LPF Urine Crystals None seen (None Seen) #/HPF Urine Bacteria None seen (NONE SEEN) #/HPF Urine Casts None seen (NONE SEEN) #/LPF Urine Mucus None seen (NONE SEEN) Ur Culture Indicated? No Imaging Data CT scan - abdomen: Radiologist's impression: Partially obstructing stones in the lower left ureter including a 4 mm stone in the lower left ureter and a 6.8 x 3.3 mm stone at the left UV junction with associated mild fullness to the left renal collecting system and stranding noted around the left kidney Discharge Plan Discharge Chief Complaint: Abdominal Pain Clinical Impression: Calculus of kidney Patient Disposition: Home, Self-Care Time of Disposition Decision: 08:48 Condition: Good Mode of Transportation: Private Vehicle Prescriptions / Home Meds: New hydrocodone-acetaminophen 5-325 mg tablet 1 tab PO Q6H PRN (Reason: pain) 5 Days Qty: 20 0RF tamsulosin [Flomax] 0.4 mg capsule 0.4 mg PO DAILY Qty: 7 0RF cephalexin 500 mg capsule 500 mg PO TID 7 Days Qty: 21 0RF ondansetron 4 mg tablet,disintegrating 4 mg PO Q6H PRN (Reason: nausea and vomiting) Qty: 20 0RF No Action norgestimate-ethinyl estradiol 0.25-0.035 mg tablet oxybutynin chloride 10 mg tablet extended release 24hr PO hydrocodone-acetaminophen 5-325 mg tablet ondansetron HCl 4 mg tablet prochlorperazine maleate 10 mg tablet sulfamethoxazole-trimethoprim 800-160 mg tablet alprazolam 0.5 mg tablet cephalexin 500 mg capsule hyoscyamine sulfate 0.125 mg tablet ondansetron 4 mg tablet,disintegrating Caplyta 42 mg capsule PO Print Language: Spanish Instructions: Kidney Stones (ED) Referrals: Javier Santoyo DO [Primary Care Provider] - 1 week Luis E Field MD [Physician, Urology] - As soon as possible
[2024-12-28 08:55] VITALS: BP 125/81; PULSE 89; O2SAT 99
== END 2024-12-28 08:57 | disposition home or self-care (01) ==
PROVIDERS: Internal Medicine; Emergency Provider Emergency Medicine; PCP Student in an Organized Health Care Education/Training Program
DX: N20.0 Calculus of kidney (principal); R10.84 Generalized abdominal pain; R31.9 Hematuria, unspecified
CPT/HCPCS: 36415; 74176; 80048; 81001; 83605; 85025; 96374; 96375; 99285; J1171; J1200; J2360; J2405; J2765; J3010